=== PATIENT | female | born 1975 | race Caucasian/White ===

== ENCOUNTER 2019-05-09 10:36 | Emergency (ER) | payer OTHER ==
[~2019-05-09] VITALS: Ht 170.2 cm; Wt 124.7 kg
[2019-05-09 11:14] LABS: ABSOLUTE EOSINOPHILS 0.1 thou/uL (0.0-0.7); ABSOLUTE MONOCYTES 0.5 thou/uL (0.0-1.2); ABSOLUTE NEUTROPHILS 4.9 thou/uL (1.6-8.1); BASOPHILS 0.5 %; HEMATOCRIT 44.9 % (37.0-47.0); HEMOGLOBIN 15.2 gm/dL (12.0-15.0); LYMPHOCYTES 15.1 %; MCH 27.7 pg (26.0-34.0); MCHC 33.8 g/dL (28.0-37.0); MCV 81.8 fL (80.0-100.0); MONOCYTES 7.7 %; MPV 8.5 fl. (7.2-11.1); NUCLEATED RBCS 0 /100WBC; PLATELET COUNT* 240 thou/uL (150-400); POLYS 74.7 %; RBC 5.49 mil/uL (4.20-5.00); RDW-CV 14.2 % (10.5-14.5); WBC 6.5 thou/uL (4.0-11.0)
[2019-05-09 11:23] LABS: CALCIUM 9.4 mg/dL (8.5-10.1); CREATININE 0.7 mg/dL (0.6-1.3); POTASSIUM 3.7 mmol/L (3.5-5.1)
[2019-05-09 11:27] LABS: ALBUMIN 3.7 g/dL (3.4-5.0); TOTAL BILIRUBIN 0.4 mg/dL (<0.1-1.0); TOTAL PROTEIN 7.8 g/dL (6.4-8.2)
[2019-05-09 12:07] LABS: INFLUENZA A ANTIGEN Negative (Negative); INFLUENZA B ANTIGEN Negative (Negative)
[2019-05-09] MEDS ORDERED: BENTYL 20 MG TA20 M1 PO (13:41)
[2019-05-09] MEDS ORDERED: CITRATE OF MAG296 ML PO (13:41)
[2019-05-09] MEDS ORDERED: ZOFRAN ODT4 MG DISSOLVE (13:41)
[2019-05-09 14:01] VITALS: BP 155/82
== END 2019-05-09 14:02 | disposition home or self-care (01) ==
LOC: M.ERS 10:36
PROVIDERS: Emergency Medicine Emergency Medical Services
DX: G43.909 Migraine, unspecified, not intractable, without status migrainosus (principal); R10.84 Generalized abdominal pain; I10 Essential (primary) hypertension; E11.40 Type 2 diabetes mellitus with diabetic neuropathy, unspecified; M79.7 Fibromyalgia; M19.90 Unspecified osteoarthritis, unspecified site; Z88.1 Allergy status to other antibiotic agents; Z88.2 Allergy status to sulfonamides

== ENCOUNTER 2019-07-01 18:16 | Emergency (ER) | payer OTHER ==
[~2019-07-01] VITALS: Ht 170.2 cm; Wt 113.4 kg
[~2019-07-01 18:16] MED LIST: BENTYL 20 MG TA20 M1 PO; CITRATE OF MAG296 ML PO; ZOFRAN ODT4 MG DISSOLVE
[2019-07-01 19:32] VITALS: BP 107/71
[2019-07-01 19:50] LABS: INFLUENZA A ANTIGEN Negative (Negative); INFLUENZA B ANTIGEN Negative (Negative)
[2019-07-01] MEDS ORDERED: PREDNISONE 20 M20 M1 PO (19:50)
[2019-07-01] MEDS ORDERED: AMOXICILLIN 50500 MG PO (19:50)
== END 2019-07-01 20:04 | disposition home or self-care (01) ==
LOC: M.ERS 18:16
PROVIDERS: Family Medicine
DX: J32.9 Chronic sinusitis, unspecified (principal); I10 Essential (primary) hypertension; M79.7 Fibromyalgia; M19.90 Unspecified osteoarthritis, unspecified site; G62.9 Polyneuropathy, unspecified; E11.9 Type 2 diabetes mellitus without complications; Z98.890 Other specified postprocedural states; Z88.2 Allergy status to sulfonamides; Z88.8 Allergy status to other drugs, medicaments and biological substances

== ENCOUNTER 2019-07-19 09:10 | Emergency (ER) | payer OTHER ==
[~2019-07-19] VITALS: Ht 170.2 cm; Wt 113.4 kg
[~2019-07-19 09:10] MED LIST changes: +AMOXICILLIN 50500 MG PO; +PREDNISONE 20 M20 M1 PO
[2019-07-19 09:36] LABS: URINE BILIRUBIN NEGATIVE (Negative); URINE BLOOD 3+ (Negative); URINE CLARITY CLOUDY; URINE COLOR OTHER; URINE GLUCOSE-RANDOM 2+ (Negative); URINE KETONES NEGATIVE (Negative); URINE LEUKOCYTES-REFLEX NEGATIVE (Negative); URINE NITRITE-REFLEX NEGATIVE (Negative); URINE PROTEIN TRACE (Negative); URINE SPECIFIC GRAVITY >= 1.030 (1.005-1.030); URINE UROBILINOGEN 0.2 E.U./dl (0.2-1.0)
[2019-07-19 09:40] LABS: ABSOLUTE EOSINOPHILS 0.1 thou/uL (0.0-0.7); ABSOLUTE MONOCYTES 0.5 thou/uL (0.0-1.2); ABSOLUTE NEUTROPHILS 3.6 thou/uL (1.6-8.1); BASOPHILS 0.6 %; EOSINOPHILS 1.9 %; HEMATOCRIT 42.7 % (37.0-47.0); HEMOGLOBIN 14.7 gm/dL (12.0-15.0); LYMPHOCYTES 18.9 %; MCH 28.3 pg (26.0-34.0); MCHC 34.5 g/dL (28.0-37.0); MCV 82.1 fL (80.0-100.0); MONOCYTES 9.4 %; MPV 8.3 fl. (7.2-11.1); NUCLEATED RBCS 0 /100WBC; PLATELET COUNT* 178 thou/uL (150-400); POLYS 69.2 %; RBC 5.21 mil/uL (4.20-5.00); WBC 5.2 thou/uL (4.0-11.0)
[2019-07-19 09:45] LABS: SQUAMOUS >10 Many /LPF (0-3)
[2019-07-19 09:46] LABS: HYALINE CASTS 0-3 Few /LPF (None Seen); MUCUS 4-6 Moderate strn/LPF (None Seen); URINE RBC >20 Many /HPF (0-2); URINE WBC-REFLEX 0-5 Rare /HPF (0-5)
[2019-07-19 09:47] LABS: CALCIUM 8.6 mg/dL (8.5-10.1); POTASSIUM 3.7 mmol/L (3.5-5.1)
[2019-07-19 09:47] LABS: CRYSTALS None Seen /LPF (None Seen)
[2019-07-19 09:52] LABS: ALBUMIN 3.6 g/dL (3.4-5.0); TOTAL BILIRUBIN 0.4 mg/dL (<0.1-1.0); TOTAL PROTEIN 7.5 g/dL (6.4-8.2)
[2019-07-19] MEDS ORDERED: ZOFRAN ODT4 MG PO (11:12)
[2019-07-19] MEDS ORDERED: HYDROCODON-ACE1 EAC7 PO (11:12)
[2019-07-19] MEDS ORDERED: MACROBID 100 M100 M1 PO (11:12)
[2019-07-19 11:36] VITALS: BP 155/90
== END 2019-07-19 11:36 | disposition home or self-care (01) ==
LOC: M.ERS 09:10
PROVIDERS: Emergency Medicine
DX: K43.9 Ventral hernia without obstruction or gangrene (principal); N39.0 Urinary tract infection, site not specified; I10 Essential (primary) hypertension; E11.9 Type 2 diabetes mellitus without complications; M79.7 Fibromyalgia; M19.90 Unspecified osteoarthritis, unspecified site; E11.40 Type 2 diabetes mellitus with diabetic neuropathy, unspecified; Z88.2 Allergy status to sulfonamides; Z88.8 Allergy status to other drugs, medicaments and biological substances

== ENCOUNTER 2020-08-10 16:40 | Emergency (ER) | payer OTHER ==
[~2020-08-10] VITALS: Ht 170.2 cm; Wt 124.7 kg
[~2020-08-10 16:40] MED LIST changes: +HYDROCODON-ACE1 EAC7 PO; +MACROBID 100 M100 M1 PO; +ZOFRAN ODT4 MG PO
[2020-08-10 17:31] LABS: ABSOLUTE EOSINOPHILS 0.1 thou/uL (0.0-0.7); ABSOLUTE LYMPHOCYTES 1.1 thou/uL (0.8-5.3); ABSOLUTE MONOCYTES 0.4 thou/uL (0.0-1.2); ABSOLUTE NEUTROPHILS 3.6 thou/uL (1.6-8.1); BASOPHILS 0.5 %; EOSINOPHILS 1.6 %; HEMATOCRIT 43.6 % (37.0-47.0); HEMOGLOBIN 14.6 gm/dL (12.0-15.0); LYMPHOCYTES 21.2 %; MCHC 33.5 g/dL (28.0-37.0); MCV 80.4 fL (80.0-100.0); MONOCYTES 8.3 %; NUCLEATED RBCS 0 /100WBC; PLATELET COUNT* 181 thou/uL (150-400); POLYS 68.4 %; RBC 5.42 mil/uL (4.20-5.00); RDW-CV 15.1 % (10.5-14.5); WBC 5.2 thou/uL (4.0-11.0)
[2020-08-10 17:39] LABS: CALCIUM 8.8 mg/dL (8.5-10.1); CREATININE 0.8 mg/dL (0.6-1.3); POTASSIUM 3.7 mmol/L (3.5-5.1)
[2020-08-10 17:49] LABS: INFLUENZA A ANTIGEN Negative (Negative); INFLUENZA B ANTIGEN Negative (Negative)
[2020-08-10 17:50] LABS: ALBUMIN 3.5 g/dL (3.4-5.0); DIRECT BILIRUBIN 0.1 mg/dL (<0.1-0.3); MAGNESIUM 1.8 mg/dL (1.8-2.4); TOTAL BILIRUBIN 0.3 mg/dL (<0.1-1.0); TOTAL PROTEIN 7.3 g/dL (6.4-8.2)
[2020-08-10] MEDS ORDERED: ULTRAM 50MG TAB50 MG PO (18:43)
[2020-08-10] MEDS ORDERED: TYLENOL325 M1 PO (18:43)
[2020-08-10] MEDS ORDERED: BENTYL 10 MG CA10 M1 PO (18:43)
[2020-08-10] MEDS ORDERED: PEPCID20 MG PO (18:43)
[2020-08-10 18:55] VITALS: BP 139/69
--- NOTE | 2020-08-11 14:15 | EKG ---
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[facility] : 1975 Requested By: Mike Reese Order Number: [id number] MD: Nigel Judge Measurements Intervals [place] Rate: 87 P: 47 NE: 169 QRS: -32 QRSD: 96 T: -2 QT: 400 QTc: 482 Interpretive Statements Sinus rhythm Left ventricular hypertrophy Anterior infarct, old No previous ECG available for comparison Electronically Signed On 08-11-2020 14:15:42 GENERAL II FARM[employer] by Nigel Judge [email or web address] <ELECTRONICALLY SIGNED> By: Nigel Judge MD, [facility] 08/11/20 1415 171 171 Nigel Judge MD, [facility] /EPI
== END 2020-08-10 19:05 | disposition home or self-care (01) ==
LOC: M.ERS 16:40
PROVIDERS: Emergency Medicine
DX: K21.9 Gastro-esophageal reflux disease without esophagitis (principal); M79.7 Fibromyalgia; Z20.822 Contact with and (suspected) exposure to COVID-19; I10 Essential (primary) hypertension; E11.40 Type 2 diabetes mellitus with diabetic neuropathy, unspecified; M19.90 Unspecified osteoarthritis, unspecified site; Z91.030 Bee allergy status; Z88.5 Allergy status to narcotic agent; Z88.1 Allergy status to other antibiotic agents; Z88.2 Allergy status to sulfonamides; Z91.013 Allergy to seafood

== ENCOUNTER 2020-11-02 12:26 | Emergency (ER) | payer OTHER ==
[~2020-11-02] VITALS: Ht 170.2 cm; Wt 113.4 kg
[~2020-11-02 12:26] MED LIST changes: +BENTYL 10 MG CA10 M1 PO; +PEPCID20 MG PO; +TYLENOL325 M1 PO; +ULTRAM 50MG TAB50 MG PO
[2020-11-02 12:54] LABS: URINE BILIRUBIN NEGATIVE (Negative); URINE BLOOD TRACE (Negative); URINE CLARITY CLEAR; URINE COLOR YELLOW; URINE GLUCOSE-RANDOM 3+ (Negative); URINE KETONES NEGATIVE (Negative); URINE LEUKOCYTES NEGATIVE (Negative); URINE NITRITE NEGATIVE (Negative); URINE PROTEIN NEGATIVE (Negative); URINE SPECIFIC GRAVITY 1.015 (1.005-1.030); URINE UROBILINOGEN 0.2 E.U./dl (0.2-1.0)
[2020-11-02] MEDS ORDERED: MOBIC7.5 MG PO (13:20)
[2020-11-02] MEDS ORDERED: PYRIDIUM200 MG PO (13:21)
[2020-11-02] MEDS ORDERED: CEPHALEXIN 250250 M1 PO (13:21)
[2020-11-02 14:00] VITALS: BP 154/86
== END 2020-11-02 14:01 | disposition home or self-care (01) ==
LOC: M.ERS 12:26
PROVIDERS: Emergency Medicine
DX: N30.90 Cystitis, unspecified without hematuria (principal); I10 Essential (primary) hypertension; M79.7 Fibromyalgia; E11.40 Type 2 diabetes mellitus with diabetic neuropathy, unspecified; M19.90 Unspecified osteoarthritis, unspecified site; Z88.5 Allergy status to narcotic agent; Z88.2 Allergy status to sulfonamides; Z91.013 Allergy to seafood

== ENCOUNTER 2021-01-26 15:43 | Emergency (ER) | payer OTHER ==
[~2021-01-26] VITALS: Ht 170.2 cm; Wt 124.7 kg
[~2021-01-26 15:43] MED LIST changes: +CEPHALEXIN 250250 M1 PO; +MOBIC7.5 MG PO; +PYRIDIUM200 MG PO
[2021-01-26 16:40] VITALS: BP 141/95
--- NOTE | 2021-01-27 12:55 | EKG ---
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: [place] : 1975 Requested By: Cristofer Reyes Order Number: [id number] Anthony MD: Nigel Judge Measurements Intervals [place] Rate: 108 P: 55 PA: 170 QRS: -47 QRSD: 92 T: 23 QT: 365 QTc: 490 Interpretive Statements Sinus tachycardia Left anterior fascicular block Left ventricular hypertrophy Anterior infarct, old possible Baseline wander in lead(s) II,III,aVR,aVL,aVF,V1,V2,V6 Compared to ECG 08/10/2020 17:13:03 Left anterior fascicular block now present Sinus rate has increased Electronically Signed On 01-27-2021 12:54:52 CDT by Nigel Judge [email or web address] <ELECTRONICALLY SIGNED> By: Nigel Judge MD, [facility] 01/27/21 1254 1548 1548 Nigel Judge MD, [facility] /EPI
--- NOTE | 2021-01-27 12:57 | EKG ---
[place] [address] ELECTROCARDIOGRAM REPORT Name: MICKY STUBBS Room: [facility]#: [id number] Admission: 01/26/21 Attend Phys: Discharge: 01/26/21 Date of : 75 Date of Service: 01/26/21 1637 Report #: [id number] THIS REPORT FOR: //name// [facility] ED Test Date: 2021-01-26 Test Time: 16:37:28 Pat Name: MICKY STUBBS Department: Room: Gender: Manager Parking: [employer] : 1975 Requested By: Cristofer Reyes Order Number: [id number] Anthony MD: Nigel uJdge Measurements Intervals [place] Rate: 103 P: 43 [place]: 168 QRS: -47 QRSD: 95 T: 26 QT: 360 QTc: 471 Interpretive Statements Sinus tachycardia Left anterior fascicular block Left ventricular hypertrophy Anterior infarct, old possible Baseline wander in lead(s) II,III,aVR,aVL,aVF Compared to ECG 01/26/2021 15:48:59 No significant changes Electronically Signed On 01-27-2021 12:56:53 CDT by Nigel Judge [email or web address] <ELECTRONICALLY SIGNED> By: Nigel Judge MD, FAC 01/27/21 1256 1637 1637 Nigel Judge MD, [facility] /EPI
== END 2021-01-26 19:08 | disposition left against medical advice (07) ==
LOC: M.ERS 15:43
DX: R07.89 Other chest pain (principal); M25.552 Pain in left hip; R42 Dizziness and giddiness; Z53.21 Procedure and treatment not carried out due to patient leaving prior to being seen by health care provider